=== PATIENT | male | born 1975 | race Caucasian/White ===

== ENCOUNTER 2018-04-24 23:06 | Emergency (ER) | payer BC ==
[~2018-04-24] VITALS: Ht 193 cm; Wt 101.2 kg
--- NOTE | 2018-04-24 23:10 | NUR ---
PT AMBULATED TO BED #12 WITH A STEADY GAIT. NO DISTRESS NOTED. PT IS ABLE TO SPEAK IN FULL SENTENCES. PT HAS BILATERAL WHEEZES. TIGHTNESS NOTED. PULSE OX IS 95% ON RA. PT IS ON THE MONITOR AND CONTINUOUS PULSE OX.
--- NOTE | 2018-04-24 23:20 | NUR ---
DR. THRASHER IS AT THE BEDSIDE.
[2018-04-24] MEDS ORDERED: IPRATROPIUM NEB FS 0.5 MG/2.5 ML AMPUL.NEB NEB ONE (23:30)
[2018-04-24] MEDS ORDERED: predniSONE 20 MG TABLET PO ONE (23:30)
[2018-04-24] MEDS ORDERED: ALBUTEROL FS 2.5 MG/3 ML VIAL.NEB NEB ONE (23:30)
[2018-04-24] MEDS ORDERED: predniSONE 20 MG TABLET ONE (23:31)
--- NOTE | 2018-04-24 23:34 | NUR ---
breathing tx started.
[2018-04-24] MEDS ORDERED: IPRATROPIUM NEB FS 0.5 MG/2.5 ML AMPUL.NEB ONE (23:40)
[2018-04-24] MEDS ORDERED: ALBUTEROL FS 2.5 MG/3 ML VIAL.NEB ONE (23:40)
--- NOTE | 2018-04-25 00:23 | NUR ---
BREATHING TX FINISHED. DR. THRASHER IS AT THE BEDSIDE SPEAKING TO THE PT AND HIS . PT'S RESP EVEN AND UNLABORED.
--- NOTE | 2018-04-25 00:24 | NUR ---
Patient discharged to home in stable condition. Written and verbal after care instructions given. Patient verbalizes understanding of instruction AND RX. PT AMBULATED OUT WITH A STEADY GAIT. VSS. NAD NOTED. PT'S IS DRIVING PT HOME.
[2018-04-25 00:27] VITALS: BP 138/87
== END 2018-04-25 00:28 | disposition home or self-care (01) ==
LOC: ER 23:09
DX: J20.9 Acute bronchitis, unspecified (principal); J45.909 Unspecified asthma, uncomplicated
CPT/HCPCS: A4606; Z7610